=== PATIENT | male | born 1960 | race Caucasian/White ===

== ENCOUNTER 2018-09-22 10:15 | Inpatient (IN) | payer MEDICAID, OTHER | END 2018-09-24 15:25 | disposition home or self-care (01) | LOC: WEST WING 09-23 12:32 → ER 10:15 → TELE 13:46 → TELE-WESTW 20:17 | PROC: 0W9G3ZZ Drainage of Peritoneal Cavity, Percutaneous Approach (ICD-10-PCS; principal; ~2018-09-22) | DX: K70.31 Alcoholic cirrhosis of liver with ascites (principal); J90 Pleural effusion, not elsewhere classified; E44.0 Moderate protein-calorie malnutrition; K40.90 Unilateral inguinal hernia, without obstruction or gangrene, not specified as recurrent; N43.3 Hydrocele, unspecified; K44.9 Diaphragmatic hernia without obstruction or gangrene ==